=== PATIENT | male | born 1960 | race Caucasian/White ===

== ENCOUNTER 2023-03-26 05:18 | Day surgery (SDC) | payer MEDICARE ==
[2023-03-19 14:09] LABS: ALBUMIN 3.9 G/DL (3.4-5.0); ALBUMIN/GLOBULIN RATIO 1.2 (1.1-1.5); ALKALINE PHOSPHATASE 86 IU/L (46-116); BLOOD UREA NITROGEN 23 MG/DL (7-18); BUN/CREATININE RATIO 24.5 (10.0-20.0); CHLORIDE 102 MMOL/L (99-107); CREATININE 0.94 MG/DL (0.60-1.10); PRE OP ALT 35 U/L (30-65); PRE OP ANION GAP 9 (8-16); PRE OP AST 29 U/L (10-37); PRE OP BILIRUB, TOTAL 0.5 MG/DL (0.0-1.0); PRE OP GLUCOSE 109 MG/DL (70-104); PRE OP POTASSIUM 3.5 MMOL/L (3.4-5.1); PRE OP SODIUM 138 MMOL/L (135-145); TOTAL PROTEIN 7.1 G/DL (6.4-8.2); eGFR 82 ML/MIN
[2023-03-19 14:13] LABS: BASOPHILS # (AUTO) 0.1 X10'3 (0-0.2); BASOPHILS % (AUTO) 0.9 % (0-1); EOSINOPHILS # (AUTO) 0.2 X10'3 (0-0.9); EOSINOPHILS % (AUTO) 2.3 % (0-6); LYMPHOCYTES # (AUTO) 1.7 X10'3 (1.1-4.8); LYMPHOCYTES % (AUTO) 20.1 % (21-51); MEAN CORPUSCULAR HEMOGLOBIN 27.6 PG (27.0-31.0); MEAN CORPUSCULAR HGB CONC 33.2 g/dL (33.0-36.5); MEAN CORPUSCULAR VOLUME 82.9 FL (78-98); MEAN PLATELET VOLUME 8.9 FL (7.4-10.4); MONOCYTES # (AUTO) 0.7 X10'3 (0-0.9); NEUTROPHILS # (AUTO) 5.8 X10'3 (1.8-7.7); NEUTROPHILS % (AUTO) 68.7 % (42-75); PRE OP HEMATOCRIT 43.4 % (42.0-52.0); PRE OP HEMOGLOBIN 14.4 g/dL (14.0-17.9); PRE OP PLATELET COUNT 210 X10'3 (140-440); RED BLOOD COUNT 5.23 X10'6 (4.70-6.10); RED CELL DISTRIBUTION WIDTH 14.4 % (11.5-14.5)
[~2023-03-26] VITALS: Ht 177.8 cm; Wt 136.1 kg
[2023-03-26] VITALS (11 sets, daily range): BP systolic 116–153; BP diastolic 68–91; PULSE 59–75; RESP 10–17; TEMP 97.3; O2SAT 92–98
[~2023-03-26 05:18] MED LIST: ALBU18HF2 INH; ATOR40TA PO; BUDE10.2 INH; DICL75TA5 PO; LISI1TAB53 PO; OMEP20TA43 PO; SEMA1PEN3 SQ; ringers solution, lacted 1,000 ML IV SCH
[2023-03-26] MEDS ORDERED: albuterol 2.5 MG/3 ML nebule NEB PRN (05:30)
[2023-03-26] MEDS ORDERED: famotidine 20mg tablet PO ONE (05:30)
[2023-03-26] MEDS ORDERED: ceFAZolin inj. 3,000 MG in normal saline 100ml IV soln 100 ML IV ONE (05:30)
[2023-03-26] MEDS ORDERED: LIDOcaine 1% 30ml preserv. free vial ONE (06:55)
[2023-03-26] MEDS ORDERED: BUPIVACAINE liposomal/PF 13.3 MG/ML vial IM ONE (06:56)
[2023-03-26] MEDS ORDERED: BUPIVAcaine/PF 2.5 mg/ml (0.25%) 30ml vial ONE (06:56)
[2023-03-26] MEDS ORDERED: propofol inj 20 ML IV ONE (07:24)
[2023-03-26] MEDS ORDERED: rocuronium 10mg/ml inj IV ONE (07:24)
[2023-03-26] MEDS ORDERED: fentaNYL/PF 50MCG/1 ML 2ML syringe ONE (07:24)
[2023-03-26] MEDS ORDERED: midazolam 1 mg/ML 2ml injection ONE (07:24)
[2023-03-26] MEDS ORDERED: sevoflurane 250ml liquid IH ONE (07:28)
[2023-03-26] MEDS ORDERED: morphine 4 MG/ML inj SYRINge IV PRN (07:30)
[2023-03-26] MEDS ORDERED: meperidine/PF 25mg/ml syringe IV PRN ×3 (07:30)
[2023-03-26] MEDS ORDERED: proCHLORperazine 10 MG/2 ml inj IV PRN (07:30)
[2023-03-26] MEDS ORDERED: ringers solution, lacted 1,000 ML IV SCH (07:30)
[2023-03-26] MEDS ORDERED: morphine 2 MG/ML inj. syringe IV PRN (07:30)
[2023-03-26] MEDS ORDERED: ondansetron/PF 4mg/2ml inj IV PRN (07:30)
[2023-03-26] MEDS ORDERED: neostigmine methylsulfate 1 MG/ML 10ml vial ONE (09:13)
[2023-03-26] MEDS ORDERED: dexamethasone sod phosphate 4mg/ml inj. ONE (09:13)
[2023-03-26] MEDS ORDERED: glycopyrrolate 0.2mg/ml inj ONE (09:13)
[2023-03-26] MEDS ORDERED: ondansetron/PF 4mg/2ml inj ONE (09:13)
--- NOTE | 2023-03-26 09:41 | NUR ---
Received from OR via [facility] TO [facility], accompanied by Anesthesiologist CHARLY and report given by Anesthesiolgist. PT ON 6L MASK WITH SPO2 97%. VSS. ABD LAP SITES CDI WITH BANDAIDS COVERED BY AN ABD BINDER. LR RUNNING AT 100ML/HR. SCD'D ON. PT DOES NOT C/O PAIN: WILL CONTINUE TO ASSESS.
[2023-03-26] MEDS ORDERED: oxyCODONE/APAP 5-325mg tablet PO PRN (09:50)
--- NOTE | 2023-03-26 10:20 | NUR ---
AFTER PATIENT AMBULATED TO BATHROOM, PT PLACED IN W/C PER HIS REQUEST.
--- NOTE | 2023-03-26 11:41 | NUR ---
PATIENT STABLE FOR D/C PER MD ORDERS. ALL D/C PPWK WAS REV'D AND ALL QUESTIONS, COMMENTS, AND CONCERNS WERE ANSWERED AT THIS TIME. PATIENT WAS ABLE TO DRESS SELF WITH MINIMAL ASSISTANCE. 4 ABD LAP SITES COVERED WITH ABD BINDER IN PLACE. PT'S PAIN IS CONTROLLED WELL NAUSEA HAS SUBSIDED. EDUCATED PATIENT RE: IMPORTANCE OF HAVING SOMEONE STAY WITH HIM FOR THE FIRST 24 HOURS D/T TO HX OF SLEEP APNEA AND WITH ANESTHESIA AND PATIENT DOES NOT USE CPAP. ALSO EDUCATED ON IMPORTANCE OF NOT BEARING DOWN AND SPLINTING ABD WHEN NEEDING TO COUGH. HE VERBALIZED UNDERSTANDING. PATIENT WAS TRANSFERRED TO W/C BY SELF WITH ALL PERSONAL BELONGINGS IN HAND. PATIENT WAS TAKEN OUT TO PRIVATE VEHICLE WHERE FAMILY WAS WAITING WITHOUT INCIDENCE.
== END 2023-03-26 11:41 | disposition home or self-care (01) ==
LOC: PAS 05:18
PROVIDERS: ATTEND Surgery
DX: K43.0 Incisional hernia with obstruction, without gangrene (principal); K21.9 Gastro-esophageal reflux disease without esophagitis; I10 Essential (primary) hypertension; M19.90 Unspecified osteoarthritis, unspecified site; E66.9 Obesity, unspecified; Z68.41 Body mass index [BMI] 40.0-44.9, adult; G47.30 Sleep apnea, unspecified; Z79.899 Other long term (current) drug therapy; Z98.890 Other specified postprocedural states; Z72.89 Other problems related to lifestyle; Z99.81 Dependence on supplemental oxygen; Z90.49 Acquired absence of other specified parts of digestive tract; Z87.891 Personal history of nicotine dependence; Z86.16 Personal history of COVID-19; Z80.0 Family history of malignant neoplasm of digestive organs; Z82.3 Family history of stroke; Z82.49 Family history of ischemic heart disease and other diseases of the circulatory system
CPT/HCPCS: 36415; 49594; 64488; 71046; 80053; 82948; 85025; 93005; C1781; C9290; J0690; J1100; J2175; J2250; J2405; J2704; J2710; J3010; J3490; J7030; J7120; Z7506; Z7508; Z7512; A4215; A4618